=== PATIENT | male | born 1940 ===

== ENCOUNTER 2017-11-28 10:21 | Outpatient (CLI) | payer OTHER ==
[~2017-11-28] VITALS: Ht 152.4 cm; Wt 83.9 kg
== END 2017-11-28 10:45 | disposition home or self-care (01) ==
LOC: OFIC 805 10:21
DX: H90.42 Sensorineural hearing loss, unilateral, left ear, with unrestricted hearing on the contralateral side (principal); H93.12 Tinnitus, left ear; H61.23 Impacted cerumen, bilateral

== ENCOUNTER 2018-06-19 10:36 | Outpatient (CLI) | payer OTHER ==
[~2018-06-19] VITALS: Ht 152.4 cm; Wt 83.9 kg
== END 2018-06-19 11:00 | disposition home or self-care (01) ==
LOC: OFIC 805 10:36
DX: H90.42 Sensorineural hearing loss, unilateral, left ear, with unrestricted hearing on the contralateral side (principal); H93.13 Tinnitus, bilateral; H61.23 Impacted cerumen, bilateral